=== PATIENT | female | born 1935 | race Caucasian/White ===

== ENCOUNTER 2016-06-08 12:55 | Emergency (ER) | payer MEDICARE, OTHER ==
--- NOTE | 2016-06-08 13:24 | ED ---
General Adult HPI - General Chief complaint: Fall Stated complaint: Fall Time Seen by Provider: 06/08/16 13:12 Source: patient, family, RN notes reviewed Mode of arrival: EMS Limitations: no limitations - History of Present Illness Initial comments: Chief complaint and history of present illness is 80-year-old female was walking to a bowling alley she tripped going in. Falling on her face. His large hematoma under her right eye. Her eye glasses caused a laceration over her right eyebrow. Denies any loss of conscious. No nausea no vomiting. The patient is on blood thinners for cardiac problems. - Related Data Home Medications Medication Instructions Recorded Confirmed Aspirin EC [Ecotrin Low Dose] 81 mg PO DAILY 06/08/16 06/08/16 Atorvastatin [Lipitor] 40 mg PO HS 06/08/16 06/08/16 Clopidogrel [Plavix] 75 mg PO DAILY 06/08/16 06/08/16 L.acidoph,Paracasei, B.lactis 1 cap PO DAILY 06/08/16 06/08/16 [Probiotic] Levothyroxine Sodium [Synthroid] 88 mcg PO DAILY 06/08/16 06/08/16 Losartan Potassium 100 mg PO DAILY 06/08/16 06/08/16 Melatonin 1 mg PO HS 06/08/16 06/08/16 Metoprolol Tartrate [Lopressor] 12.5 mg PO BID 06/08/16 06/08/16 Multivit-Min/FA/Lycopene/Lut 1 tab PO DAILY 06/08/16 06/08/16 [Centrum Silver Tablet] Cookson-3 Fatty Acids [Cookson-3] 1,000 mg PO DAILY 06/08/16 06/08/16 Allergies Allergy/AdvReac Type Severity Reaction Status Date / Time No Known Allergies Allergy Verified 06/08/16 14:00 Review of Systems ROS Statement: Those systems with pertinent positive or pertinent negative responses have been documented in the HPI. Review of systems patient denies headache she does have pain around the right eye where she has large hematoma and laceration. No change in visual acuity no complaints of TMJ pain or jaw pain teeth are intact. No complaint of neck pain. No chest pain shortness breath GI/ problems this time. All systems otherwise reviewed. No complaint of any neuro deficits. 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 Patient's surgeries include cystocele or rectocele sling. Hysterectomy, 1 stent to cardiac cast. Patient's family history mother had lung and breast cancer. Patient denies ALLERGIES. She quit smoking 16 years ago denies alcohol use. ROS Other: All systems not noted in ROS Statement are negative. Past Medical History Past Medical History: Coronary Artery Disease (CAD), Hyperlipidemia, Hypertension, Thyroid Disorder History of Any Multi-Drug Resistant Organisms: None Reported Past Surgical History: Heart Catheterization, Orthopedic Surgery Additional Past Surgical History / Comment(s): knee surgery Past Psychological History: No Psychological Hx Reported Smoking Status: Former smoker Past Alcohol Use History: None Reported Past Drug Use History: None Reported General Exam - General Exam Comments Initial Comments: General: The patient is awake and alert, patient just fell resulting in large hematoma to her right maxillary area just below the eye and a laceration to her right eyebrow area. Vital signs show temperature 97.0 pulse 57 respiratory rate 18 pulse ox 99% room air blood pressure 207/90. Patient does have hypertension she is here with pain after a fall this be rechecked after the patient is made more comfortable. Eye: Pupils are equal, round and reactive to light, extra-ocular movements are intact ; there is normal conjunctiva bilaterally. No signs of icterus. No diplopia Ears, nose, mouth and throat: There are moist mucous membranes and no oral lesions. Teeth intact no chips, no TMJ pain. Neck: The neck is supple, there is no tenderness, full range of motion. Patient still of the CAT scan of the neck due to the mechanism of injury. Cardiovascular: There is a regular rate and rhythm. No murmur, rub or gallop is appreciated. Respiratory: Lungs are clear to auscultation, respirations are non-labored, breath sounds are equal. No wheezes, stridor, rales, or rhonchi. Gastrointestinal: Soft, non-distended, non-tender abdomen without masses or organomegaly noted. There is no rebound or guarding present. No CVA tenderness. Bowel sounds are unremarkable. Back: There is no tenderness to palpation in the midline. There is no obvious deformity. Patient is able to twist and turn been without complaint of pain to her back. Musculoskeletal: Normal ROM, no tenderness, There is no pedal edema. There is no calf tenderness or swelling. Sensation intact. Upper and lower extremities showed full range of motion hands wrist elbow shoulders toes and ankles knees and hips without pain. Mild discomfort to the medial aspect left knee. No pain with varus valgus or drawer testing. Neurovascular status feet are intact. Neurological: CN II-XII intact, There are no obvious motor or sensory deficits. Coordination appears grossly intact. Speech is normal. No focal or lateralizing findings Skin: Skin is warm and dry and no rashes or lesions are noted. Limitations: no limitations Course Vital Signs 06/08/16 06/08/16 13:05 13:15 Temperature 97 F L Pulse Rate 57 L Respiratory 18 Rate Blood Pressure 207/90 O2 Sat by Pulse 99 Oximetry Procedures - Procedures Initial comment: Her seizure; topical Mastisol was used to increase the adherence of the Steri- Strips. The wound edges were approximated with Steri-Strips as well as could' ve been done with sutures. Pressure was applied. Patient was advised to leave these on for at least 1 week. Patient is also advised that she'll develop ecchymosis which show restarted around the right eye. Dr. Berry Medical Decision Making - Medical Decision Making Medical decision making; CAT scan of the brain and cervical spine was done and reviewed by radiologist entire report was reviewed of CT brain and cervical spine and facial bones. The report is on impression is #1 there is no acute fracture dislocation evident in the cervical spine. There is demineralization with loss of normal cervical curvature multilevel degenerative changes seen as detailed in the report. #2 no acute intracranial hemorrhage or midline shift seen. There is mild diffuse cerebral atrophy and chronic small vessel ischemic changes as well as old infarcts all noted in the body of the report. #3 no acute facial bone fracture dislocation. Soft tissue hematoma right face noted. As read by Dr. zhou Patient was advised to apply ice to the area. Continue with medications try Tylenol + strong enough she does have [place] available to her. Advised to return emergency room with any difficulties and/or follow-up with family physician. Disposition Clinical Impression: Fall, Facial contusion Disposition: HOME SELF-CARE Condition: Fair Instructions: Fall Prevention for Older Adults (ED), Contusion in Adults (ED), Ecchymosis (ED) Additional Instructions: Apply ice on and off to the area of the right eyebrow and right cheek. Report any signs of infection to her family physician. Return emergency room if any difficulties. Time of Disposition: 14:38
[2016-06-08] MEDS ORDERED: HYDROcodone/APAP 5-325MG 1 EACH TAB PO STA (13:28)
--- NOTE | 2016-06-08 14:07 | CT ---
EXAMINATION TYPE: CT brain cspine wo con, CT facial bones wo con DATE OF EXAM: 06/08/2016 1:55 PM COMPARISON: NONE HISTORY: Fall, bruising and swelling to Rt eye, headache, and neck pain. CT DLP: 2275 (brain, cervical, facial) mGycm Automated exposure control for dose reduction was used. TECHNIQUE: CT scan of the head , facial bones, and cervical spine are performed without contrast. FINDINGS: There is no acute intracranial hemorrhage or midline shift identified. The ventricles an d sulci are mildly prominent consistent with mild age-related cerebral atrophy. Some areas of low att enuation are present. Some small old infarcts are identified bilaterally. Largest is right superior b gordo ganglia level near image 24. The calvarium is intact. Nasal bridge is intact. Orbital floors and doty are intact. The globes are intact bilaterally. The z ygomatic arches are intact bilaterally. The visualized mandible is intact. Temporomandibular joints a re maintained. The zygomatic arches are intact bilaterally. The pterygoid plates are intact. There is small subcutaneous hematoma right zygoma level. Tiny hematoma right supraorbital level later ally is present. The paranasal sinuses are grossly clear. Visualized portion of mastoid air cells elaine ws no suspicious opacification. There is some calcified plaque in supraclinoid segment of distal inte rnal carotid arteries bilaterally identified. Cervical spine is visualized in its entirety from C1 through upper thoracic levels and demonstrates dextroconvex scoliotic curvature centered in the lower cervical spine with straightening of spine see n on sagittal images without evidence of acute fracture or dislocation. Prevertebral soft tissue brett ears within normal limits. The C1-C2 articulation is within normal limits on the coronal images. Osseous structures are demineralized. There is advanced disc space narrowing C4-C5, C5-C6, C6-C7 leve ls. There is moderate spurring with subchondral cystic change and sclerosis at C5-C6 level. Disc calc ification at C6-C7 level is noted. Posterior spur disc complex is or effacing anterior thecal sac at C4-C5 and C5-C6 levels. Review of axial images shows multilevel uncovertebral facet degenerative changes bilaterally most pro minent on the right side in the upper cervical spine. There is moderate multilevel anterior spurring in the mid to lower cervical spine. Visualized lung apices are clear. Fairly moderate calcified plaqu e is seen in carotid bulb level bilaterally. IMPRESSION: 1. There is no acute fracture or dislocation evident in the cervical spine. There is demineralization with loss of normal cervical curvature and multilevel degenerative changes seen as detailed above. 2. No acute intracranial hemorrhage or midline shift is seen. There is mild diffuse cerebral atrophy and chronic small vessel ischemic change as well as old infarcts all noted. 3. No acute facial bone fracture or dislocation. Small soft tissue hematomas right face noted.
[2016-06-08] MEDS ORDERED: DIPH,PERTUS(ACELL)TETVAC-LF 0.5 ML VIAL IM ONE (15:12)
[2016-06-08] MEDS ORDERED: METOPROLOL TARTRATE 12.5 MG TAB PO STA (15:37)
[2016-06-08] MEDS ORDERED: METOPROLOL TARTRATE 25 MG TAB PO STA (15:42)
[2016-06-08 15:49] VITALS: BP 177/81; PULSE 78; RESP 16; TEMP 97.8
== END 2016-06-08 15:47 | disposition home or self-care (01) ==
LOC: EC 12:55
DX: S01.111A Laceration without foreign body of right eyelid and periocular area, initial encounter (principal); S00.83XA Contusion of other part of head, initial encounter; Z23 Encounter for immunization; W01.0XXA Fall on same level from slipping, tripping and stumbling without subsequent striking against object, initial encounter; I10 Essential (primary) hypertension; Y92.838 Other recreation area as the place of occurrence of the external cause; I25.2 Old myocardial infarction; Z98.61 Coronary angioplasty status; E78.00 Pure hypercholesterolemia, unspecified; E03.9 Hypothyroidism, unspecified; I25.10 Atherosclerotic heart disease of native coronary artery without angina pectoris; Z79.82 Long term (current) use of aspirin; Z79.02 Long term (current) use of antithrombotics/antiplatelets; Z79.899 Other long term (current) drug therapy; Z87.891 Personal history of nicotine dependence; Z85.820 Personal history of malignant melanoma of skin
CPT/HCPCS: 70450; 70486; 72125; 90471; 90715; 99284

== ENCOUNTER → 2016-10-23 | Outpatient (CLI) | payer MEDICARE, OTHER ==
[2016-10-23 09:19] LABS: ALT 23 U/L (9-52); AST 42 U/L (14-36); Cholesterol 171 mg/dL (<200); Creatine Kinase 128 U/L (30-135); HDL Cholesterol 53 mg/dL (40-60); Triglycerides 142 mg/dL (<150)
== END | disposition home or self-care (01) ==
LOC: LABWHC1 08:12
PROVIDERS: ATTEND Internal Medicine Interventional Cardiology
DX: E78.2 Mixed hyperlipidemia (principal)
CPT/HCPCS: 36415; 80061; 82550; 84450; 84460

== ENCOUNTER 2016-11-28 13:31 | Emergency (ER) | payer MEDICARE, OTHER ==
[2016-11-28 13:50] VITALS: BP 143/66; PULSE 64; RESP 16; TEMP 98.6
--- NOTE | 2016-11-28 14:37 | ED ---
Wound/Laceration HPI - General Chief Complaint: Wound/Laceration Stated Complaint: Hand Injury Time Seen by Provider: 11/28/16 14:28 Source: patient, RN notes reviewed Mode of arrival: ambulatory Limitations: no limitations - History of Present Illness Initial Comments: 80-year-old female presents emergency laceration to the left hand. Patient states she was outside in a tree branch that her left hand. Patient states it' s very superficial cut. Patient states that they are tenderness. Patient states her hand does feel sore. Patient states she got the bleeding to stop her home due to the fact that he did have labs that she should be seen. Patient states there is no other injury with the incident. Patient states she has no other complaints. Patient denies any recent fever, chills, shortness of breath, chest pain, back pain, abdominal pain, nausea vomiting, numbness or tingling, dysuria or hematuria, constipation or diarrhea, headaches or visual changes, or any other current symptoms. - Related Data Home Medications Medication Instructions Recorded Confirmed Aspirin EC [Ecotrin Low Dose] 81 mg PO DAILY 06/08/16 11/28/16 Atorvastatin [Lipitor] 40 mg PO HS 06/08/16 11/28/16 Clopidogrel [Plavix] 75 mg PO DAILY 06/08/16 11/28/16 L.acidoph,Paracasei, B.lactis 1 cap PO DAILY 06/08/16 11/28/16 [Probiotic] Levothyroxine Sodium [Synthroid] 88 mcg PO DAILY 06/08/16 11/28/16 Losartan Potassium 100 mg PO DAILY 06/08/16 11/28/16 Melatonin 1 mg PO HS 06/08/16 11/28/16 Metoprolol Tartrate [Lopressor] 12.5 mg PO BID 06/08/16 11/28/16 Multivit-Min/FA/Lycopen/Lutein 1 tab PO DAILY 06/08/16 11/28/16 [Centrum Silver Tablet] Perryman-3 Fatty Acids [Perryman-3] 1,000 mg PO DAILY 06/08/16 11/28/16 Allergies Allergy/AdvReac Type Severity Reaction Status Date / Time No Known Allergies Allergy Verified 11/28/16 13:50 Review of Systems ROS Statement: Those systems with pertinent positive or pertinent negative responses have been documented in the HPI. ROS Other: All systems not noted in ROS Statement are negative. Past Medical History Past Medical History: Coronary Artery Disease (CAD), Hyperlipidemia, Hypertension, Thyroid Disorder Additional Past Medical History / Comment(s): lumbar stenosis History of Any Multi-Drug Resistant Organisms: None Reported Past Surgical History: Heart Catheterization, Orthopedic Surgery Additional Past Surgical History / Comment(s): knee surgery Past Psychological History: No Psychological Hx Reported Smoking Status: Former smoker Past Alcohol Use History: None Reported Past Drug Use History: None Reported General Exam - General Exam Comments Initial Comments: General: The patient is awake and alert, in no distress, and does not appear acutely ill. Neck: The neck is supple, there is no tenderness. Cardiovascular: There is a regular rate and rhythm. No murmur, rub or gallop is appreciated. Respiratory: Lungs are clear to auscultation, respirations are non-labored, breath sounds are equal. No wheezes, stridor, rales, or rhonchi. Musculoskeletal: Sensation intact with 2+ pulses. Left upper joint. Fund motion of left wrist and left hand. Patient does appear to have a 4 cm flap- type superficial laceration to the left hand. Consistent with a skin tear. 5. Muscle strength testing throughout. Neurological: CN II-XII intact, There are no obvious motor or sensory deficits. Coordination appears grossly intact. Speech is normal. Skin: Skin is warm and dry and no rashes or lesions are noted. Psychiatric: Normal mood and affect. Limitations: no limitations Course Vital Signs 11/28/16 13:46 Temperature 98.6 F Pulse Rate 64 Respiratory 16 Rate Blood Pressure 143/66 O2 Sat by Pulse 98 Oximetry Medical Decision Making - Medical Decision Making 80-year-old female presents for what appears to the left hand after injury the treatment. Patient does have some complaint of soreness and pain to left hand. X-rays negative. This time patient did undergo cleaning of the wound and care. We discussed follow-up return parameters all questions. We did discuss care of the wound. The patient. This time she will be discharged home. - Radiology Data Radiology results: image reviewed Interpreted by me: Interpreted by me: Right hand xray: 3 view, no fracture, no dislocation, no bony lesions, no foreign bodies, no soft tissue damage. Waiting official radiology read. Disposition Clinical Impression: Skin tear of left hand without complication Disposition: HOME SELF-CARE Condition: Stable Instructions: Skin Tear (ED) Additional Instructions: Please use medication as discussed. Please follow up with family doctor if symptoms have not improved over the next two days. Please return to the emergency room if your symptoms increase or worsen or for any other concerns. Referrals: Jeremie Negron III, MD [Primary Care Provider] - 1-2 days Time of Disposition: 15:05
--- NOTE | 2016-11-28 16:17 | XR ---
EXAMINATION TYPE: XR hand complete LT DATE OF EXAM: 11/28/2016 COMPARISON: NONE HISTORY: Pain laceration third digit TECHNIQUE: 3 views left hand FINDINGS: No acute fractures are evident. Soft tissues are normal. There is narrowing of joint spaces compatible with degenerative change. This may be greater at the distal interphalangeal joint space o f the thumb. IMPRESSION: 1. Degenerative joint changes. 2. No acute osseous abnormality. 3. No radiopaque foreign body.
== END 2016-11-28 15:29 | disposition home or self-care (01) ==
LOC: EC 13:31
DX: S61.412A Laceration without foreign body of left hand, initial encounter (principal); E78.5 Hyperlipidemia, unspecified; I10 Essential (primary) hypertension; E07.9 Disorder of thyroid, unspecified; Z87.891 Personal history of nicotine dependence; Z79.02 Long term (current) use of antithrombotics/antiplatelets; Z79.82 Long term (current) use of aspirin; Z79.899 Other long term (current) drug therapy; Z87.39 Personal history of other diseases of the musculoskeletal system and connective tissue; W45.8XXA Other foreign body or object entering through skin, initial encounter; Y92.89 Other specified places as the place of occurrence of the external cause; Y93.H2 Activity, gardening and landscaping
CPT/HCPCS: 99283

== ENCOUNTER 2020-05-13 12:53 | Inpatient (IN) | payer MEDICARE, OTHER ==
--- NOTE | 2020-05-13 13:39 | ED ---
General Adult HPI - General Chief complaint: Weakness Stated complaint: not eating/weakness Time Seen by Provider: 05/13/20 13:10 Source: family Mode of arrival: wheelchair Limitations: no limitations - History of Present Illness Initial comments: Dictation was produced using [employer] dictation software. please excuse any grammatical, word or spelling errors. This patient was cared for during a federal and state declared state of emergency secondary to Covid 19 Chief Complaint: 84-year-old female brought in by daughter for inability History of Present Illness: Patient is a 84-year-old female she has past medical history coronary artery disease, dyslipidemia hypertension. Over the last month patient has declined physically. Patient's daughter reports that over the last months she's been getting significantly worse. She lives at home with her daughter who has COPD and is having difficulty taking care of her at home. She has been pretty one month ago however over the last month she's been getting worse. She's been more significantly weak and unable to make her own food and having urinary incontinence. Patient reports that she wants to she believes that this is because of her age. She's been having poor appetite. The ROS documented in this emergency department record has been reviewed and confirmed by me. Those systems with pertinent positive or negative responses have been documented in the HPI. All other systems are other negative and/or noncontributory. PHYSICAL EXAM: General Impression: Alert and oriented x3, not in acute distress HEENT: Normocephalic atraumatic, extra-ocular movements intact, pupils equal and reactive to light bilaterally, mucous membranes moist. Cardiovascular: Heart regular rate and rhythm Chest: Able to complete full sentences, no retractions, no tachypnea Abdomen: abdomen soft, non-tender, non-distended, no organomegaly Musculoskeletal: Pulses present and equal in all extremities, no peripheral edema Motor: no focal deficits noted Neurological: CN II-XII grossly intact, no focal motor or sensory deficits noted Skin: Intact with no visualized rashes Psych: Normal affect and mood ED course: 84-year-old female presents with worsening weakness, subacute vital signs upon arrival are within acceptable limits.Laboratory evaluation obtained. Mild leukocytosis. Coag panel is negative. Metabolic panel shows elevated renal markers concerning for dehydration. Lactic acidosis of 2.7. Laboratory results were discussed with family. They requested patient be admitted for her debility given that she has good social situation. Case was discussed Dr. Colby was went except patient's care. Psychiatry will be consulted for patient's depression and suicidal ideation. EKG interpretation: Ventricular rate a 67, normal sinus rhythm,. Interval 140, QRS 86, QTC 43. No MO prolongation, no QTC prolongation, no ST or T-wave changes noted. Overall, this EKG is unremarkable - Related Data Home Medications Medication Instructions Recorded Confirmed Aspirin EC [Ecotrin Low Dose] 81 mg PO DAILY 06/08/16 11/28/16 Atorvastatin [Lipitor] 40 mg PO HS 06/08/16 11/28/16 Clopidogrel [Plavix] 75 mg PO DAILY 06/08/16 11/28/16 L.acidoph,Paracasei, B.lactis 1 cap PO DAILY 06/08/16 11/28/16 [Probiotic] Levothyroxine Sodium [Synthroid] 88 mcg PO DAILY 06/08/16 11/28/16 Losartan Potassium 100 mg PO DAILY 06/08/16 11/28/16 Melatonin 1 mg PO HS 06/08/16 11/28/16 Metoprolol Tartrate [Lopressor] 12.5 mg PO BID 06/08/16 11/28/16 Multivit-Min/FA/Lycopen/Lutein 1 tab PO DAILY 06/08/16 11/28/16 [Centrum Silver Tablet] Walsh-3 Fatty Acids [Walsh-3] 1,000 mg PO DAILY 06/08/16 11/28/16 Allergies Allergy/AdvReac Type Severity Reaction Status Date / Time No Known Allergies Allergy Verified 05/13/20 14:53 Review of Systems ROS Statement: Those systems with pertinent positive or pertinent negative responses have been documented in the HPI. ROS Other: All systems not noted in ROS Statement are negative. Past Medical History Past Medical History: Coronary Artery Disease (CAD), Hyperlipidemia, Hypertension, Thyroid Disorder Additional Past Medical History / Comment(s): lumbar stenosis History of Any Multi-Drug Resistant Organisms: None Reported Past Surgical History: Heart Catheterization, Orthopedic Surgery Additional Past Surgical History / Comment(s): knee surgery Past Psychological History: No Psychological Hx Reported Past Alcohol Use History: None Reported Past Drug Use History: None Reported General Exam Limitations: no limitations Course Vital Signs 05/13/20 05/13/20 12:57 14:34 Temperature 97.9 F Pulse Rate 69 66 Respiratory 20 18 Rate Blood Pressure 111/70 137/72 O2 Sat by Pulse 94 L 97 Oximetry Medical Decision Making - Lab Data Result diagrams: 05/13/20 13:39 05/13/20 13:39 Lab Results 05/13/20 05/13/20 05/13/20 Range/Units 13:39 13:39 13:39 WBC 10.8 H (3.8-10.6) k/uL RBC 4.68 (3.80-5.40) m/uL Hgb 13.7 (11.4-16.0) gm/dL Hct 41.3 (34.0-46.0) % MCV 88.2 (80.0-100.0) fL MCH 29.3 (25.0-35.0) pg MCHC 33.2 (31.0-37.0) g/dL RDW 16.6 H (11.5-15.5) % Plt Count 495 H (150-450) k/uL MPV 6.8 Neutrophils % 88 % Lymphocytes % 5 % Monocytes % 5 % Eosinophils % 0 % Basophils % 1 % Neutrophils # 9.4 H (1.3-7.7) k/uL Lymphocytes # 0.6 L (1.0-4.8) k/uL Monocytes # 0.6 (0-1.0) k/uL Eosinophils # 0.0 (0-0.7) k/uL Basophils # 0.1 (0-0.2) k/uL Anisocytosis Slight PT 10.2 (9.0-12.0) sec INR 1.0 (<1.2) APTT 22.6 (22.0-30.0) sec Sodium 134 L (137-145) mmol/L Potassium 4.0 (3.5-5.1) mmol/L Chloride 98 (98-107) mmol/L Carbon Dioxide 26 (22-30) mmol/L Anion Gap 10 mmol/L BUN 42 H (7-17) mg/dL Creatinine 1.12 H (0.52-1.04) mg/dL Est GFR (CKD-EPI)AfAm 52 (>60 ml/min/1.73 sqM) Est GFR (CKD-EPI)NonAf 45 (>60 ml/min/1.73 sqM) Glucose 52 L (74-99) mg/dL Plasma Lactic Acid Fernando (0.7-2.0) mmol/L Calcium 11.3 H (8.4-10.2) mg/dL Ionized Calcium Cara 5.8 H (4.5-5.3) mg/dL Magnesium 1.9 (1.6-2.3) mg/dL Total Bilirubin 0.9 (0.2-1.3) mg/dL AST 128 H (14-36) U/L ALT 20 (4-34) U/L Alkaline Phosphatase 199 H (38-126) U/L Troponin I (0.000-0.034) ng/mL Total Protein 7.3 (6.3-8.2) g/dL Albumin 3.7 (3.5-5.0) g/dL 05/13/20 05/13/20 Range/Units 13:39 13:39 WBC (3.8-10.6) k/uL RBC (3.80-5.40) m/uL Hgb (11.4-16.0) gm/dL Hct (34.0-46.0) % MCV (80.0-100.0) fL MCH (25.0-35.0) pg MCHC (31.0-37.0) g/dL RDW (11.5-15.5) % Plt Count (150-450) k/uL MPV Neutrophils % % Lymphocytes % % Monocytes % % Eosinophils % % Basophils % % Neutrophils # (1.3-7.7) k/uL Lymphocytes # (1.0-4.8) k/uL Monocytes # (0-1.0) k/uL Eosinophils # (0-0.7) k/uL Basophils # (0-0.2) k/uL Anisocytosis PT (9.0-12.0) sec INR (<1.2) APTT (22.0-30.0) sec Sodium (137-145) mmol/L Potassium (3.5-5.1) mmol/L Chloride (98-107) mmol/L Carbon Dioxide (22-30) mmol/L Anion Gap mmol/L BUN (7-17) mg/dL Creatinine (0.52-1.04) mg/dL Est GFR (CKD-EPI)AfAm (>60 ml/min/1.73 sqM) Est GFR (CKD-EPI)NonAf (>60 ml/min/1.73 sqM) Glucose (74-99) mg/dL Plasma Lactic Acid Fernando 2.7 H* (0.7-2.0) mmol/L Calcium (8.4-10.2) mg/dL Ionized Calcium Cara (4.5-5.3) mg/dL Magnesium (1.6-2.3) mg/dL Total Bilirubin (0.2-1.3) mg/dL AST (14-36) U/L ALT (4-34) U/L Alkaline Phosphatase (38-126) U/L Troponin I <0.012 (0.000-0.034) ng/mL Total Protein (6.3-8.2) g/dL Albumin (3.5-5.0) g/dL Disposition Clinical Impression: Debility Disposition: ADMITTED IP TO THIS HOSP Condition: Fair Referrals: Homar Mendiola MD [Primary Care Provider] - 1-2 days Decision Time: 14:55
[2020-05-13 13:58] LABS: Anisocytosis Slight; Basophils # (A) 0.1 k/uL (0-0.2); Basophils % (A) 1 %; Eosinophils % (A) 0 %; HCT 41.3 % (34.0-46.0); HGB 13.7 gm/dL (11.4-16.0); Lymphocytes # (A) 0.6 k/uL (1.0-4.8); Lymphocytes % (A) 5 %; MCH 29.3 pg (25.0-35.0); MCHC 33.2 g/dL (31.0-37.0); MCV 88.2 fL (80.0-100.0); Mean Platelet Volume 6.8; Monocytes # (A) 0.6 k/uL (0-1.0); Monocytes % (A) 5 %; Neutrophils # (A) 9.4 k/uL (1.3-7.7); Neutrophils % (A) 88 %; Platelet Count 495 k/uL (150-450); RBC 4.68 m/uL (3.80-5.40); RDW 16.6 % (11.5-15.5); WBC 10.8 k/uL (3.8-10.6)
[2020-05-13 14:12] LABS: Partial Thromboplastin Time 22.6 sec (22.0-30.0); Prothrombin Time 10.2 sec (9.0-12.0)
[2020-05-13 14:15] LABS: Ionized Calcium 5.8 mg/dL (4.5-5.3)
[2020-05-13 14:26] LABS: Albumin 3.7 g/dL (3.5-5.0); Calcium 11.3 mg/dL (8.4-10.2); Magnesium 1.9 mg/dL (1.6-2.3); Total Bilirubin 0.9 mg/dL (0.2-1.3); Total Protein 7.3 g/dL (6.3-8.2)
[2020-05-13] MEDS ORDERED: SODIUM CHLORIDE 0.9% 1,000 ML IV STA (14:31)
[2020-05-13] MEDS ORDERED: NALOXONE 0.4 MG/ML 1 ML VIAL IV PRN (14:55)
[2020-05-13] MEDS ORDERED: ACETAMINOPHEN TAB 325 MG TAB PO PRN (14:55)
[2020-05-13 15:05] LABS: Appearance,Urine Cloudy (Clear); Bilirubin,Urine Negative (Negative); Blood,Urine Negative (Negative); Color,Urine Yellow; Glucose,Urine (UA) Negative (Negative); Hyaline Casts,Urine 1 /lpf (0-2); Ketones,Urine Negative (Negative); Leukocyte Esterase,Urine Negative (Negative); Mucus,Urine Rare /hpf; Nitrite,Urine Negative (Negative); Protein,Urine Trace (Negative); RBC,Urine 1 /hpf (0-5); Specific Gravity,Urine 1.014 (1.001-1.035); Squamous Epithelial Cell,Urine 1 /hpf (0-4); Urobilinogen,Urine <2.0 mg/dL (<2.0); WBC,Urine 3 /hpf (0-5)
[2020-05-14 07:14] LABS: Anisocytosis Slight; Basophils % (A) 0 %; Eosinophils # (A) 0.1 k/uL (0-0.7); Eosinophils % (A) 1 %; HCT 38.8 % (34.0-46.0); HGB 12.4 gm/dL (11.4-16.0); Lymphocytes # (A) 0.7 k/uL (1.0-4.8); Lymphocytes % (A) 7 %; MCH 28.3 pg (25.0-35.0); MCHC 31.8 g/dL (31.0-37.0); MCV 89.1 fL (80.0-100.0); Mean Platelet Volume 7.1; Monocytes # (A) 0.5 k/uL (0-1.0); Monocytes % (A) 6 %; Neutrophils # (A) 8.1 k/uL (1.3-7.7); Neutrophils % (A) 85 %; Platelet Count 427 k/uL (150-450); RBC 4.36 m/uL (3.80-5.40); RDW 16.8 % (11.5-15.5); WBC 9.5 k/uL (3.8-10.6)
[2020-05-14] MEDS: ASPIRIN 81 MG PO SCH (08:01)
[2020-05-14] MEDS: LOSARTAN 50 MG TAB PO SCH (08:02)
[2020-05-14] MEDS: LEVOTHYROXINE 88 MCG TAB PO SCH (08:02)
[2020-05-14] MEDS: CLOPIDOGREL 75 MG TAB PO SCH (08:02)
[2020-05-14] MEDS ORDERED: METOPROLOL TARTRATE 12.5 MG TAB PO SCH (09:00)
[2020-05-14] MEDS ORDERED: NON FORMULARY DRUG (Ubidecarenone [Co Q-10] 400 MG Capsule) PO SCH (09:00)
[2020-05-14] MEDS ORDERED: hydroCHLOROthiazide 25 MG TAB PO SCH (09:00)
[2020-05-14] MEDS ORDERED: LACTATED RINGERS 1,000 ML IV SCH (13:00)
[2020-05-14 13:38] LABS: African American GFR (CKD) 77.9 (60.0-200.0); BUN/Creat Ratio 47.5 Ratio (12.00-20.00); Non-African American GFR(CKD) 67.2 (60.0-200.0); Potassium 3.8 mmol/L (3.5-5.5)
--- NOTE | 2020-05-14 13:45 | P.CN ---
Psychiatric Consult - . Consult date: 05/14/20 Consult:: IDENTIFYING DATA: This patient is a , 84-year-old female with significant history of CAD, dyslipidemia, hypertension who was brought to the hospital due to weakness and decline in ability to care for self. HISTORY OF PRESENT ILLNESS: The patient presented to the hospital on 05/13/2020 after gradual decline over the past month in terms of her ability to care for herself. Psychiatry has been consulted as the patient expressed that she feels like she is a burden and is wondering why she is alive follow many of the people that she and new are . The patient expresses that she is not suicidal or homicidal. She has no intention or plan to hurt herself. She expresses that she has just been contemplating as she feels like she has lived in for filter purpose. The patient is not reporting any significant symptoms of depression at this time. She has been noted to have a poor appetite but denies so to this provider. She reports no issues with sleep. She states that her family has been very supportive. PAST PSYCHIATRIC HISTORY: The patient denies any significant history of mental illness. Patient denies being on any psychiatric medications. Patient denies any previous psychiatric hospitalizations. Patient denies any psychiatric outpatient follow-up. Patient denies any history of suicide attempts in the past. PAST MEDICAL HISTORY: CAD, hyperlipidemia, hypertension, thyroid disorder, lumb ar stenosis. ALLERGIES: NO KNOWN DRUG ALLERGIES CHEMICAL DEPENDENCY HISTORY: Patient denies tobacco, alcohol, marijuana, or illicit drug use. FAMILY PSYCHIATRIC/SUBSTANCE USE HISTORY: Unable to assess SOCIAL HISTORY: Patient currently lives with one of her 3 daughters. She reports having 3 daughters and 2 sons. She has been once and is currently . She reports that she was for 20 years but was for 20 years ago. 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 She reports that she is Orthodox but is not very faith. MENTAL STATUS EXAM: General Appearance: Patient appears to be stated age is alert, pleasant, and cooperative. Patient appears to have good hygiene and grooming wearing hospital gown with intermittent eye contact. Behavior: Patient is calmly lying in bed without any agitated behavior. Patient does appear fatigued. Speech: Patient's speech is spontaneous, but very low in volume, monotone, fluent and not pressured. Mood/Affect: Patient reports their mood is "alright", affect is congruent, constricted, contemplative, otherwise euthymic. Suicidality/Homicidality: Patient denies having any suicidal or homicidal ideation intent or plan. Perceptions: Patient denies any visual hallucinations and denies any auditory hallucinations Though content/process: There is no evidence of any delusional thought content and thought process is linear and goal-directed. Memory and concentration: AOX3, grossly intact for the purposes of this session. Judgment and insight: Fair IMPRESSIONS: Adjustment disorder PLAN: -At this time patient DOES NOT meet criteria for inpatient psychiatric admission. -Delirium precautions recommended with patient including - avoiding use of narcotics and [employer] sedatives, limit anticholinergic medications when possible, frequent re-orientation, minimize use of restraints, open window shades during the day and close them at night -Would recommend the following medication changes/additions: We will not start any medications at this time. Supportive therapy and providing her with adequate services to aid her in completing her ADLs is highly recommended. -Discontinue one-to-one sitter. -Psychiatry will sign off at this point, please contact with any questions. 05/14/20 13:37 05/14/20 13:43
[2020-05-14 14:04] LABS: Glucose,Whole Blood 66 mg/dL (75-99)
[2020-05-14 14:29] LABS: Glucose,Whole Blood 65 mg/dL (75-99)
[2020-05-14 15:01] LABS: Glucose,Whole Blood 88 mg/dL (75-99)
[2020-05-14] MEDS: DEXTROSE 5%-0.45% NACL 1,000 ML IV SCH (15:01)
[2020-05-14 16:42] LABS: Glucose,Whole Blood 143 mg/dL (75-99)
[2020-05-14 20:49] LABS: Glucose,Whole Blood 106 mg/dL (75-99)
[2020-05-14] MEDS ORDERED: ATORVASTATIN 40 MG TAB PO SCH (21:00)
--- NOTE | 2020-05-14 21:07 | P.HPIM ---
History of Present Illness H&P Date: 05/14/20 Chief Complaint: Overall decline History of presenting complaint: This is a 84-year-old patient of Dr. lucio. Chronic stable medical conditions include coronary artery disease hypertension hyperlipidemia hypothyroidism stenosis. As per the daughter's report in the ER over the last month patient has clinically declined physically. . Unable to make her own food. Also inc ontinent. Not Have much of an appetite. Denied any fevers and chill. No obvious pain. No shortness of breath. Some joint pains Review of systems: GEN.: Decreased appetite and weight loss EYES: None HEENT: Decreased hearing NECK: None RESPIRATORY: None CARDIOVASCULAR: None GASTROINTESTINAL: None GENITOURINARY: Urinary incontinence MUSCULOSKELETAL: Joint pains LYMPHATICS: None HEMATOLOGICAL: None PSYCHIATRY: Depressed NEUROLOGICAL: None Past medical history to include: Coronary artery disease, hyperlipidemia, hypertension, hypothyroid, lumbar stenosis Social history: Lives with her daughter. Did smoke in the past. No alcohol Family history: Reviewed, noncontributory to presentation Physical examination: VITAL SIGNS: 97.9, 69, 20, 111/70, 94% room air GENERAL: BMI 23.4, sitting up in a chair, very low appearing. EYES: [Pupils equal. Conjunctiva heather]l. HEENT: [External appearance of nose and ears normal, oral cavity grossly normal] decreased hearing. NECK: [JVD not raised; masses not palpable]. HEART: [First and second heart sounds are normal; no edema]. LUNGS:[ Respiratory rate normal; decreased breath sounds]. ABDOMEN: [Soft, nontender, liver spleen not palpable, no masses palpable]. PSYCH: [Alert and oriented x3; mood and affect low l. NEUROLOGICAL: [Cranial nerves grossly intact; no facial asymmetry, power and sensation grossly intact]. MUSCULAR skeletal: Evidence of OA. Loss of subcu fat and decreased muscle mass LYMPHATICS: [No lymph nodes palpable in the axilla and neck] INVESTIGATIONS, reviewed in the clinical context: White count 10.8 hemoglobin 13.7 platelets 495 potassium 4 BUN 42 creatinine 1.12 Lactic acid 2.7 ionized calcium 5.8 elevated UA showing protein trace Coronavirus P/Cr-not detected EKG tracing personally reviewed by me-normal sinus rhythm nonspecific T-wave changes ST segment changes Assessment: -Acute on chronic advancing medical debility -Possible major depression -Anorexia -Coronary artery disease -Hyperlipidemia -Essential hypertension -Hypothyroid -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 Consult psychiatry. Home medications resumed. PTOT. Consult social media director case therapist. CASSIDY hydrochlorothiazide. Give IV fluids. Past Medical History Past Medical History: Coronary Artery Disease (CAD), Hyperlipidemia, Hypertension, Thyroid Disorder Additional Past Medical History / Comment(s): lumbar stenosis History of Any Multi-Drug Resistant Organisms: None Reported Past Surgical History: Heart Catheterization, Orthopedic Surgery Additional Past Surgical History / Comment(s): knee surgery Past Psychological History: No Psychological Hx Reported Smoking Status: Former smoker Past Alcohol Use History: None Reported Past Drug Use History: None Reported Medications and Allergies Home Medications Medication Instructions Recorded Confirmed Type Aspirin EC [Ecotrin Low Dose] 81 mg PO DAILY 06/08/16 05/13/20 History Atorvastatin [Lipitor] 40 mg PO HS 06/08/16 05/13/20 History Clopidogrel [Plavix] 75 mg PO DAILY 06/08/16 05/13/20 History Levothyroxine Sodium [Synthroid] 88 mcg PO DAILY 06/08/16 05/13/20 History Losartan Potassium 100 mg PO DAILY 06/08/16 05/13/20 History Metoprolol Tartrate [Lopressor] 12.5 mg PO DAILY 06/08/16 05/13/20 History Ubidecarenone [Co Q-10] 400 mg PO DAILY 05/13/20 05/13/20 History hydroCHLOROthiazide [Hydrodiuril] 25 mg PO DAILY 05/13/20 05/13/20 History Allergies Allergy/AdvReac Type Severity Reaction Status Date / Time No Known Allergies Allergy Verified 05/13/20 14:53 Physical Exam Vitals: Vital Signs Temp Pulse Pulse Resp BP BP Pulse Ox 05/14/20 07:09 97.4 F L 74 15 133/61 96 05/14/20 01:38 97.9 F 69 145/69 96 05/13/20 20:00 18 05/13/20 17:14 97.9 F 66 18 137/69 97 05/13/20 16:12 66 18 137/69 97 05/13/20 16:06 98.0 F 62 136/73 97 05/13/20 14:34 66 18 137/72 97 05/13/20 12:57 97.9 F 69 20 111/70 94 L Intake and Output 05/13/20 05/14/20 05/14/20 22:59 06:59 14:59 Other: Voiding Method Diaper Diaper Incontinent Incontinent # Voids 0 1 Weight 54.431 kg Results CBC & Chem 7: 05/14/20 06:55 05/14/20 06:55 Labs: Abnormal Lab Results - Last 24 Hours (Table) 05/13/20 05/13/20 05/13/20 Range/Units 13:39 13:39 13:39 WBC 10.8 H (3.8-10.6) k/uL RDW 16.6 H (11.5-15.5) % Plt Count 495 H (150-450) k/uL Neutrophils # 9.4 H (1.3-7.7) k/uL Lymphocytes # 0.6 L (1.0-4.8) k/uL Sodium 134 L (137-145) mmol/L BUN 42 H (7-17) mg/dL Creatinine 1.12 H (0.52-1.04) mg/dL Glucose 52 L (74-99) mg/dL Plasma Lactic Acid Fernando 2.7 H* (0.7-2.0) mmol/L Calcium 11.3 H (8.4-10.2) mg/dL Ionized Calcium Cara 5.8 H (4.5-5.3) mg/dL AST 128 H (14-36) U/L Alkaline Phosphatase 199 H (38-126) U/L Urine Appearance (Clear) Urine Protein (Negative) Urine Mucus (None) /hpf 05/13/20 05/14/20 Range/Units 14:35 06:55 WBC (3.8-10.6) k/uL RDW 16.8 H (11.5-15.5) % Plt Count (150-450) k/uL Neutrophils # 8.1 H (1.3-7.7) k/uL Lymphocytes # 0.7 L (1.0-4.8) k/uL Sodium (137-145) mmol/L BUN (7-17) mg/dL Creatinine (0.52-1.04) mg/dL Glucose (74-99) mg/dL Plasma Lactic Acid Fernando (0.7-2.0) mmol/L Calcium (8.4-10.2) mg/dL Ionized Calcium Cara (4.5-5.3) mg/dL AST (14-36) U/L Alkaline Phosphatase (38-126) U/L Urine Appearance Cloudy H (Clear) Urine Protein Trace H (Negative) Urine Mucus Rare H (None) /hpf Thrombosis Risk Factor Assmnt - Choose All That Apply Any of the Below Risk Factors Present?: No Other Risk Factors: Yes Each Risk Factor Represents 3 Points: Age 75 years or older Other congenital or acquired thrombophilia - If yes, enter type in comment: No Thrombosis Risk Factor Assessment Total Risk Factor Score: 3 Thrombosis Risk Factor Assessment Level: Moderate Risk
[2020-05-15] MEDS: DEXTROSE 5%-0.45% NACL 1,000 ML IV SCH ×2 (02:54→08:44)
[2020-05-15 03:18] LABS: Glucose,Whole Blood 84 mg/dL (75-99)
[2020-05-15] MEDS: LEVOTHYROXINE 88 MCG TAB PO SCH (05:44)
[2020-05-15 06:50] LABS: Glucose,Whole Blood 100 mg/dL (75-99)
[2020-05-15] MEDS: ASPIRIN 81 MG PO SCH (08:39)
[2020-05-15] MEDS: CLOPIDOGREL 75 MG TAB PO SCH (08:39)
[2020-05-15] MEDS: LOSARTAN 50 MG TAB PO SCH (08:39)
[2020-05-15] MEDS ORDERED: DULoxetine HCL 30 MG CAPSULE.DR PO SCH (09:00)
[2020-05-15 11:35] LABS: Glucose,Whole Blood 106 mg/dL (75-99)
[2020-05-15 14:18] VITALS: BP 144/73; PULSE 72; RESP 16; TEMP 97.8
[2020-05-15 15:10] VITALS: BMI 23.4
--- NOTE | 2020-05-15 21:15 | P.DS ---
Providers Date of admission: 05/13/20 16:40 Expected date of discharge: 05/15/20 Attending physician: Ray Colby Consults: 05/13/20 13:36 Consult Physician Routine Consulting Provider: Umberto Yepez Consult Reason/Comments: depression Do you want consulting provider notified?: Already Contacted Primary care physician: Homar Lucio [facility] Course: Chief Complaint: Overall decline History of presenting complaint: This is a 84-year-old patient of Dr. lucio. Chronic stable medical conditions include coronary artery disease hypertension hyperlipidemia hypothyroidism As per the daughter's report in the ER over the last month patient has clinically declined physically. . Unable to make her own food. Also incontinent. Not Have much of an appetite. Denied any fevers and chill. No obvious pain. No shortness of breath. Some joint pains Patient is seen by psychiatry. I did add some Cymbalta. Encourage oral intake. Patient some point need long-term care. Discussed with nurse case manager. She did talk to the family. They'll take her back home. Physical examination: VITAL SIGNS: 97.8, 72, 16, 140/73, 94% room air GENERAL: Sitting up in a chair, tired EYES: Pupils equal. Conjunctiva normal. HEENT:decreased hearing. NECK: JVD not raised; masses not palpable. HEART: First and second heart sounds are normal; no edema. LUNGS: Respiratory rate normal; decreased breath sounds. ABDOMEN: Soft, nontender, liver spleen not palpable, no masses palpable. PSYCH: [Alert and oriented x3; mood and affect low l. NEUROLOGICAL: Cranial nerves grossly intact; no facial asymmetry, power and sensation grossly intact. MUSCULAR skeletal: Evidence of OA. 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 -Hypoglycemia from poor oral intake Disposition: Home with daughter Patient Condition at Discharge: Stable Plan - Discharge Summary Discharge Rx Participant: Yes New Discharge Prescriptions: New DULoxetine HCL [Cymbalta] 30 mg PO DAILY #30 cap Continue Metoprolol Tartrate [Lopressor] 12.5 mg PO DAILY Aspirin EC [Ecotrin Low Dose] 81 mg PO DAILY Levothyroxine Sodium [Synthroid] 88 mcg PO DAILY Clopidogrel [Plavix] 75 mg PO DAILY Ubidecarenone [Co Q-10] 400 mg PO DAILY Changed Losartan Potassium 100 mg PO HS #0 Discontinued Atorvastatin [Lipitor] 40 mg PO HS hydroCHLOROthiazide [Hydrodiuril] 25 mg PO DAILY Discharge Medication List Aspirin EC [Ecotrin Low Dose] 81 mg PO DAILY 06/08/16 [History] Clopidogrel [Plavix] 75 mg PO DAILY 06/08/16 [History] Levothyroxine Sodium [Synthroid] 88 mcg PO DAILY 06/08/16 [History] Metoprolol Tartrate [Lopressor] 12.5 mg PO DAILY 06/08/16 [History] Ubidecarenone [Co Q-10] 400 mg PO DAILY 05/13/20 [History] DULoxetine HCL [Cymbalta] 30 mg PO DAILY #30 cap 05/15/20 [Rx] Losartan Potassium 100 mg PO HS #0 05/15/20 [Rx] Follow up Appointment(s)/Referral(s): Homar Lucio MD [Primary Care Provider] - 1-2 days (office closed at time of discharge. Please call to make appointment) [facility] [NON-STAFF] - (Please contact [facility] if you have questions regarding the new walker. ) [facility], [NON-STAFF] - Patient Instructions/Handouts: Dehydration (DC) Activity/Diet/Wound Care/Special Instructions: Dr Colby will send your new scripts to your preferred pharmacy tomorrow Discharge Disposition: HOME WITH HOME HEALTH SERVICES
== END 2020-05-15 17:18 | disposition home health service (06) | DRG 948 ==
LOC: EC 12:53 → 5NMEDONC 14:55 → OBSVTOIN 16:40 → 4SSUR 17:28
PROVIDERS: ADMIT Hospitalist; ATTEND Hospitalist
DX: R53.81 Other malaise (principal); E87.2 Acidosis; Z20.828 Contact with and (suspected) exposure to other viral communicable diseases; E03.9 Hypothyroidism, unspecified; E78.5 Hyperlipidemia, unspecified; F32.9 Major depressive disorder, single episode, unspecified; G89.29 Other chronic pain; I10 Essential (primary) hypertension; M48.061 Spinal stenosis, lumbar region without neurogenic claudication; R63.0 Anorexia; E16.2 Hypoglycemia, unspecified; M19.90 Unspecified osteoarthritis, unspecified site; I25.10 Atherosclerotic heart disease of native coronary artery without angina pectoris; Z79.02 Long term (current) use of antithrombotics/antiplatelets; Z79.82 Long term (current) use of aspirin; Z79.890 Hormone replacement therapy; Z79.899 Other long term (current) drug therapy; Z87.891 Personal history of nicotine dependence; Z98.890 Other specified postprocedural states
CPT/HCPCS: 36415; 80048; 80053; 81001; 82330; 83605; 83735; 84443; 84484; 85025; 85610; 85730; 87635; 93005; 99285